=== PATIENT | female | born 1930 | race Two or more races ===

== ENCOUNTER 2017-08-12 15:22 | Observation (INO) | payer MEDICARE ==
[2017-08-12] MEDS ORDERED: SODIUM CHLORIDE 0.9% 500 ML IV ONE (15:34)
--- NOTE | 2017-08-12 15:46 | ED ---
Fall HPI - General Chief Complaint: Fall Stated Complaint: Fall Time Seen by Provider: 08/12/17 15:27 Source: patient Mode of arrival: EMS - History of Present Illness Initial Comments: Patient presents to ER by EMS after fall at nursing facility. Patient states she was walking out of the bathroom when she felt unsteady, and lowered herself to the ground. Patient is adamant that she did not fall. Patient states she sat down with her back against the closet door. Patient only complaint at this time is pain in her upper mid back that radiates to chest. Patient denies syncope. Patient denies any preceding symptoms prior to sitting down on the floor. Patient denies hip pain, low back pain, pain in any extremities. Patient denies head trauma. Patient on aspirin 81 mg daily, no other blood thinners. Patient denies confusion, numbness, weakness, speech problems, headache, shortness breath, recent illness, fevers, chills, coughing. MD Complaint: fall - Related Data Home Medications Medication Instructions Recorded Confirmed Aspirin [Adult Low Dose Aspirin EC] 81 mg PO DAILY 04/13/17 08/12/17 Calcium Carbonate [Calcium] 1,200 mg PO DAILY 04/13/17 08/12/17 Levothyroxine Sodium [Synthroid] 88 mcg PO DAILY 04/13/17 08/12/17 Multivit-Min/FA/Lycopen/Lutein 1 tab PO DAILY 04/13/17 08/12/17 [Centrum Silver Tablet] Naproxen Sodium [Aleve] 220 mg PO DAILY 04/13/17 08/12/17 [place]-3 Fatty Acids/Fish Oil [Fish 1 cap PO DAILY 04/13/17 08/12/17 Oil 1,000 mg Softgel] amLODIPine [Norvasc] 5 mg PO DAILY 08/12/17 08/12/17 Allergies Allergy/AdvReac Type Severity Reaction Status Date / Time Sulfa (Sulfonamide Allergy Unknown Verified 04/13/17 18:08 Antibiotics) Review of Systems ROS Statement: Those systems with pertinent positive or pertinent negative responses have been documented in the HPI. ROS Other: All systems not noted in ROS Statement are negative. Constitutional: Denies: fever, chills, weakness Eyes: Denies: eye pain, vision change ENT: Denies: ear pain, dental pain, congestion Respiratory: Denies: cough, dyspnea Cardiovascular: Reports: chest pain (radiates from back). Denies: palpitations , dyspnea on exertion, edema, syncope Endocrine: Denies: fatigue Gastrointestinal: Denies: abdominal pain, nausea, vomiting, diarrhea, constipation Genitourinary: Denies: urgency, dysuria, hematuria Musculoskeletal: Reports: back pain (where back hit door). Denies: joint swelling, arthralgia, myalgia Skin: Denies: rash, lesions, change in color Neurological: Denies: headache, weakness, numbness, paresthesias, confusion Past Medical History Past Medical History: Cancer History of Any Multi-Drug Resistant Organisms: None Reported Additional Past Surgical History / Comment(s): removed right eye from [place] Past Psychological History: No Psychological Hx Reported Smoking Status: Never smoker Past Alcohol Use History: None Reported Past Drug Use History: None Reported General Exam - General Exam Comments Initial Comments: Sitting up in bed smiling. Talkative. Well-appearing. Calm, pleasant. Does not appear in pain. No acute distress. Limitations: no limitations General appearance: alert, in no apparent distress Head exam: Present: atraumatic, normocephalic, normal inspection, other (No sign of head trauma) Eye exam: Present: other (Right pupil narrower than left, patient history of eye cancer with prostatic eye. Left pupil reactive, left eye movements intact.) . Absent: periorbital swelling, periorbital tenderness ENT exam: Present: normal exam, normal oropharynx Neck exam: Present: normal inspection, full ROM. Absent: tenderness Respiratory exam: Present: normal lung sounds bilaterally. Absent: respiratory distress, wheezes, rales Cardiovascular Exam: Present: regular rate, normal rhythm GI/Abdominal exam: Present: soft. Absent: distended, tenderness, guarding, rebound Extremities exam: Present: normal inspection, full ROM, normal capillary refill , other (Full Range of motion all extremities without pain.). Absent: tenderness, pedal edema, joint swelling Back exam: Present: normal inspection, tenderness (Mild tenderness thoracic spine.). Absent: paraspinal tenderness, rash noted Neurological exam: Present: alert, oriented X3 (Patient oriented to spelling of name, place, year, date of .) Psychiatric exam: Present: normal affect, normal mood Skin exam: Present: warm, dry, intact, normal color. Absent: rash, abrasion Course Vital Signs 08/12/17 08/12/17 15:28 17:33 Temperature 98.8 F Pulse Rate 91 90 Respiratory 18 18 Rate Blood Pressure 167/74 161/74 O2 Sat by Pulse 96 99 Oximetry Medical Decision Making - Medical Decision Making EKG shows sinus rhythm with PACs, heart rate 91, no ST or T-wave changes appreciated. Spoke with caregiver at [facility] patient had a fall yesterday afternoon, was found on the ground, unknown downtime. [facility] patient appeared well, however today patient seemed to be "moving more slowly" so she was sent to the ER for evaluation. Patient mentation appears well intact. No focal neuro deficits on exam. Patient denies head trauma. No sign of head trauma on exam. Do not feel head CT warranted at this time. Mild CPK elevated Trop neg BUN/Cr ratio elevated, IV fluids given. UA shows infection, Rocephin given. Will give Rx abx. 19:09 A/w xray reads. Pt ambulatory in ER without difficulty at this time. Pt updated with results thus far. No acute fracture and pelvic x-ray, new sclerosis and right pubic symphysis consistent with healing fracture, old healed left pubic fracture, no evidence of new hip fracture Thoracic x-rays show T9 compression fracture slightly worse, new fracture of T5 Chest x-ray shows new infiltrates versus atelectasis at the lung bases compared to old exam Given UTI, fall of unclear mechanism, new compression fractures, plan for observation. Patient's primary care physician Dr. Abby cisneros. 20:29 SPoke with pt's PCP Dr. Au, updated patient condition results, agrees with observation, requests consult to spine Dr. Houser Patient updated with results and plan, patient resting comfortably in bed, pain control. - Lab Data Result diagrams: 08/12/17 15:44 08/12/17 15:44 Lab Results 08/12/17 08/12/17 08/12/17 Range/Units 15:44 15:44 15:44 WBC 15.2 H (3.8-10.6) k/uL RBC 4.82 (3.80-5.40) m/uL Hgb 15.0 (11.4-16.0) gm/dL Hct 44.8 (34.0-46.0) % MCV 93.0 (80.0-100.0) fL MCH 31.1 (25.0-35.0) pg MCHC 33.5 (31.0-37.0) g/dL RDW 13.6 (11.5-15.5) % Plt Count 315 (150-450) k/uL Neutrophils % 86 % Lymphocytes % 6 % Monocytes % 6 % Eosinophils % 2 % Basophils % 0 % Neutrophils # 13.0 H (1.3-7.7) k/uL Lymphocytes # 0.9 L (1.0-4.8) k/uL Monocytes # 0.9 (0-1.0) k/uL Eosinophils # 0.2 (0-0.7) k/uL Basophils # 0.1 (0-0.2) k/uL PT (9.0-12.0) sec INR (<1.2) APTT (22.0-30.0) sec Sodium 140 (137-145) mmol/L Potassium 3.6 (3.5-5.1) mmol/L Chloride 103 (98-107) mmol/L Carbon Dioxide 24 (22-30) mmol/L Anion Gap 13 mmol/L BUN 29 H (7-17) mg/dL Creatinine 0.80 (0.52-1.04) mg/dL Est GFR (MDRD) Af Amer >60 (>60 ml/min/1.73 sqM) Est GFR (MDRD) Non-Af >60 (>60 ml/min/1.73 sqM) Glucose 95 (74-99) mg/dL Calcium 9.4 (8.4-10.2) mg/dL Creatine Kinase 225 H (30-135) U/L Troponin I 0.021 (0.000-0.034) ng/mL Urine Color Urine Appearance (Clear) Urine pH (5.0-8.0) Ur Specific [place] (1.001-1.035) Urine Protein (Negative) Urine Glucose (UA) (Negative) Urine Ketones (Negative) Urine Blood (Negative) Urine Nitrite (Negative) Urine Bilirubin (Negative) Urine Urobilinogen (<2.0) mg/dL Ur Leukocyte Esterase (Negative) Urine RBC (0-5) /hpf Urine WBC (0-5) /hpf Ur Squamous Epith Cells (0-4) /hpf Urine Bacteria (None) /hpf Hyaline Casts (0-2) /lpf Urine Mucus (None) /hpf 08/12/17 08/12/17 Range/Units 16:41 17:45 WBC (3.8-10.6) k/uL RBC (3.80-5.40) m/uL Hgb (11.4-16.0) gm/dL Hct (34.0-46.0) % MCV (80.0-100.0) fL MCH (25.0-35.0) pg MCHC (31.0-37.0) g/dL RDW (11.5-15.5) % Plt Count (150-450) k/uL Neutrophils % % Lymphocytes % % Monocytes % % Eosinophils % % Basophils % % Neutrophils # (1.3-7.7) k/uL Lymphocytes # (1.0-4.8) k/uL Monocytes # (0-1.0) k/uL Eosinophils # (0-0.7) k/uL Basophils # (0-0.2) k/uL PT 10.2 (9.0-12.0) sec INR 1.0 (<1.2) APTT 22.7 (22.0-30.0) sec Sodium (137-145) mmol/L Potassium (3.5-5.1) mmol/L Chloride (98-107) mmol/L Carbon Dioxide (22-30) mmol/L Anion Gap mmol/L BUN (7-17) mg/dL Creatinine (0.52-1.04) mg/dL Est GFR (MDRD) Af Amer (>60 ml/min/1.73 sqM) Est GFR (MDRD) Non-Af (>60 ml/min/1.73 sqM) Glucose (74-99) mg/dL Calcium (8.4-10.2) mg/dL Creatine Kinase (30-135) U/L Troponin I (0.000-0.034) ng/mL Urine Color Yellow Urine Appearance Cloudy H (Clear) Urine pH 6.0 (5.0-8.0) Ur Specific [place] 1.022 (1.001-1.035) Urine Protein 1+ H (Negative) Urine Glucose (UA) Negative (Negative) Urine Ketones 1+ H (Negative) Urine Blood Negative (Negative) Urine Nitrite Positive H (Negative) Urine Bilirubin Negative (Negative) Urine Urobilinogen 2.0 (<2.0) mg/dL Ur Leukocyte Esterase Small H (Negative) Urine RBC 3 (0-5) /hpf Urine WBC 20 H (0-5) /hpf Ur Squamous Epith Cells 3 (0-4) /hpf Urine Bacteria Many H (None) /hpf Hyaline Casts 46 H (0-2) /lpf Urine Mucus Many H (None) /hpf Disposition Clinical Impression: Thoracic compression fracture, Complicated UTI (urinary tract infection), Fall Disposition: ADMITTED IP TO THIS HOSP Condition: Good Referrals: Scottie Oneill MD [Primary Care Provider] - 1-2 days
[2017-08-12 15:58] LABS: Basophils # (A) 0.1 k/uL (0-0.2); Basophils % (A) 0 %; Eosinophils # (A) 0.2 k/uL (0-0.7); Eosinophils % (A) 2 %; HCT 44.8 % (34.0-46.0); Lymphocytes # (A) 0.9 k/uL (1.0-4.8); Lymphocytes % (A) 6 %; MCH 31.1 pg (25.0-35.0); MCHC 33.5 g/dL (31.0-37.0); Mean Platelet Volume 7.5; Monocytes # (A) 0.9 k/uL (0-1.0); Monocytes % (A) 6 %; Neutrophils % (A) 86 %; Platelet Count 315 k/uL (150-450); RBC 4.82 m/uL (3.80-5.40); RDW 13.6 % (11.5-15.5); WBC 15.2 k/uL (3.8-10.6)
[2017-08-12 16:12] LABS: Anion Gap 13 mmol/L; Blood Urea Nitrogen 29 mg/dL (7-17); Calcium 9.4 mg/dL (8.4-10.2); Carbon Dioxide 24 mmol/L (22-30); Chloride 103 mmol/L (98-107); Creatine Kinase 225 U/L (30-135); Glucose 95 mg/dL (74-99); Sodium 140 mmol/L (137-145)
[2017-08-12 16:15] LABS: Potassium 3.6 mmol/L (3.5-5.1)
[2017-08-12 16:57] LABS: Prothrombin Time 10.2 sec (9.0-12.0)
[2017-08-12 17:04] LABS: Partial Thromboplastin Time 22.7 sec (22.0-30.0)
[2017-08-12 18:09] LABS: Appearance,Urine Cloudy (Clear); Bacteria,Urine Many /hpf; Bilirubin,Urine Negative (Negative); Blood,Urine Negative (Negative); Color,Urine Yellow; Glucose,Urine (UA) Negative (Negative); Hyaline Casts,Urine 46 /lpf (0-2); Ketones,Urine 1+ (Negative); Leukocyte Esterase,Urine Small (Negative); Mucus,Urine Many /hpf; Nitrite,Urine Positive (Negative); Protein,Urine 1+ (Negative); RBC,Urine 3 /hpf (0-5); Specific Gravity,Urine 1.022 (1.001-1.035); Squamous Epithelial Cell,Urine 3 /hpf (0-4); WBC,Urine 20 /hpf (0-5)
--- NOTE | 2017-08-12 18:22 | XR ---
EXAMINATION TYPE: XR chest 2V DATE OF EXAM: 08/12/2017 COMPARISON: 04/13/2017 HISTORY: Weakness TECHNIQUE: Frontal and lateral views of the chest are obtained. FINDINGS: There is coarsening of interstitial markings. There is some linear density at the left estevan g base. Heart is enlarged. There is no gross heart failure. Thoracic aorta is atheromatous. IMPRESSION: There are new interstitial infiltrates and atelectasis at the lung bases compared to old exam. There is decreased inspiration. Cardiomegaly. No gross heart failure.
[2017-08-12] MEDS ORDERED: cefTRIAXone IN SWFI 1,000 MG/10 ML SYRINGE IVP STA (19:12)
--- NOTE | 2017-08-12 19:13 | XR ---
EXAMINATION TYPE: XR pelvis AP view DATE OF EXAM: 08/12/2017 COMPARISON: 04/13/2017 HISTORY: Back pain TECHNIQUE: Single view FINDINGS: There is some deformity and sclerosis in the pubic symphysis related to old bilateral fract ures. I see no acute fracture. The sacroiliac joints are intact. Hip joint spaces are fairly normal. There is retained fecal material in the cecum. IMPRESSION: No acute fracture seen. There is new sclerosis in the right pubic symphysis consistent wi th healing fracture. There is old healed left pubic fracture. Constipation. No evidence of hip fractu re.
--- NOTE | 2017-08-12 19:15 | XR ---
EXAMINATION TYPE: XR thoracic spine 2V DATE OF EXAM: 08/12/2017 COMPARISON: NONE HISTORY: Back pain TECHNIQUE: 3 views FINDINGS: There is osteopenia. There is compression deformity of T9 vertebra with 50% loss of height. There is also 50% wedging of T5 vertebra. There is no paraspinal mass. IMPRESSION: T9 compression fracture is slightly worse than chest x-ray of 04/13/2017. There is a new fracture of T5. Osteopenia.
[2017-08-12] MEDS ORDERED: ACETAMINOPHEN TAB 325 MG TAB PO PRN (20:31)
[2017-08-12] MEDS ORDERED: IBUPROFEN 600 MG TAB PO PRN (20:31)
[2017-08-13 07:43] VITALS: RESP 16
[2017-08-13] MEDS ORDERED: DOCUSATE 100 MG CAP PO PRN (07:55)
[2017-08-13] MEDS: SODIUM CHLORIDE 0.9% 1,000 ML IV SCH ×2 (08:39→17:58)
[2017-08-13] MEDS ORDERED: cefTRIAXone IN SWFI 1,000 MG/10 ML SYRINGE IVP SCH (09:00)
--- NOTE | 2017-08-13 09:05 | P.CNOR ---
History of Present Illness - [facility] Consult date: 08/13/17 Requesting physician: Scottie Oneill Consult reason: fracture (T5 and T9 wedging compression fracture deformities), back pain History of present illness: Patient is a very pleasant 87-year-old female who is seen and examined at the bedside for further evaluation of her thoracic spine after consultation was placed for multiple compression fracture deformities. Patient was brought to the emergency department by EMS yesterday, 08/12/2017. Patient states she was feeling unsteady and lowered herself to the floor. She denies falling. Since that time, she has had some increased mid thoracic back pain. She denies any difficulty with the bilateral lower extremities. She is able to lift and move the lower extremities throughout range of motion without difficulty. She is eating without difficulty. She has no other complaints other than her thoracic back pain. He was found to have a urinary tract infection in the emergency department and is currently receiving Rocephin IV. Past Medical History Past Medical History: Cancer History of Any Multi-Drug Resistant Organisms: None Reported Additional Past Surgical History / Comment(s): removed right eye from [place] Past Psychological History: No Psychological Hx Reported Smoking Status: Never smoker Past Alcohol Use History: None Reported Past Drug Use History: None Reported Medications and Allergies Home Medications Medication Instructions Recorded Confirmed Type Aspirin [Adult Low Dose Aspirin EC] 81 mg PO DAILY 04/13/17 08/12/17 History Calcium Carbonate [Calcium] 1,200 mg PO DAILY 04/13/17 08/12/17 History Levothyroxine Sodium [Synthroid] 88 mcg PO DAILY 04/13/17 08/12/17 History Multivit-Min/FA/Lycopen/Lutein 1 tab PO DAILY 04/13/17 08/12/17 History [Centrum Silver Tablet] Naproxen Sodium [Aleve] 220 mg PO DAILY 04/13/17 08/12/17 History [place]-3 Fatty Acids/Fish Oil [Fish 1 cap PO DAILY 04/13/17 08/12/17 History Oil 1,000 mg Softgel] amLODIPine [Norvasc] 5 mg PO DAILY 08/12/17 08/12/17 History Allergies Allergy/AdvReac Type Severity Reaction Status Date / Time Sulfa (Sulfonamide Allergy Unknown Verified 04/13/17 18:08 Antibiotics) Physical Examination Physical exam: Patient is awake, alert, and oriented 3 Vital signs stable Good chest excursion with deep inspiration and expiration Abdomen soft nontender Examination of thoracic spine reveals skin is intact with no abrasions, lacerations, or bruises; no erythema, purulence or signs of infection Significant pain with palpation of the mid thoracic spine Dorsiflexion, plantarflexion, and extensor hallucis longus positive sustained bilaterally Lower extremity strength 5/5 bilaterally No lower extremity hyperreflexia bilaterally Straight leg test negative bilateral lower extremities No signs or symptoms of DVT; no calf pain No pain with internal and external rotation of the hips bilaterally Neurovascularly intact Results Pertinent studies: X-rays of the thoracic spine: T5 and T9 wedging compression fracture deformity approximately 50% height loss; T9 fracture slightly worse as compared to previous study taken on 04/13/2017; osteopenia X-ray of the pelvis: No acute fracture evident; old healed left pubic fracture; new sclerosis in the right pubic symphysis consistent with healing fracture; no evidence of hip fracture - Labs Labs: Abnormal Lab Results - Last 24 Hours (Table) 08/12/17 08/12/17 08/12/17 Range/Units 15:44 15:44 17:45 WBC 15.2 H (3.8-10.6) k/uL Neutrophils # 13.0 H (1.3-7.7) k/uL Lymphocytes # 0.9 L (1.0-4.8) k/uL BUN 29 H (7-17) mg/dL Creatine Kinase 225 H (30-135) U/L Urine Appearance Cloudy H (Clear) Urine Protein 1+ H (Negative) Urine Ketones 1+ H (Negative) Urine Nitrite Positive H (Negative) Ur Leukocyte Esterase Small H (Negative) Urine WBC 20 H (0-5) /hpf Urine Bacteria Many H (None) /hpf Hyaline Casts 46 H (0-2) /lpf Urine Mucus Many H (None) /hpf Microbiology - Last 24 Hours (Table) 08/12/17 17:45 Urine Culture - Preliminary Urine,Voided H & H 08/12/17 Range/Units 15:44 Hgb 15.0 (11.4-16.0) gm/dL Hct 44.8 (34.0-46.0) % Coagulation 08/12/17 Range/Units 16:41 INR 1.0 (<1.2) Result Diagrams: 08/12/17 15:44 08/12/17 15:44 Assessment and Plan Assessment: Assessment: Acute T5 wedging compression fracture deformity due to osteopenia Acute worsening T9 wedging compression fracture deformity due to osteopenia Thoracic back pain Urinary tract infection (1) Wedge compression fracture of T5 vertebra Current Visit: Yes Status: Acute Code(s): S22.050A - WEDGE COMPRESSION FRACTURE OF T5-T6 VERTEBRA, INIT SNOMED Code(s): 680311042 (2) Wedge compression fracture of T9 vertebra Current Visit: Yes Status: Acute Code(s): S22.070A - WEDGE COMPRESSION FRACTURE OF T9-T10 VERTEBRA, INIT SNOMED Code(s): 760246923 (3) Thoracic back pain Current Visit: Yes Status: Acute Code(s): M54.6 - PAIN IN THORACIC SPINE SNOMED Code(s): 988891663 Plan: Plan: 1. After further evaluation of the patient, reviewing imaging, and discussion with the patient, we'll currently plan to obtain a Spinomed TLSO brace for the patient's compression fracture deformities at T5 and T9. We discussed she should wear this brace at all times while sitting upright at greater than 45, while ambulating, while working with therapy, and while doing activities. Brace is not have to be worn while lying in bed or while bathing. Patient should avoid excessive bending, twisting, lifting. No lifting greater than 10 pounds. Once this brace has been delivered and fitted properly, patient is clear for discharge from an orthopedic spine standpoint. 2. Medicine to continue following the patient closely for further treatment and evaluation including her urinary tract infection 3. Continue pain control 4. Following discharge, patient may follow-up with Michael Baker PA-C or Dr. Cezar Houser at [facility] in approximately 2-3 weeks for further evaluation 4. Patient will be discussed in detail with Dr. Cezar Houser Time with Patient: Less than 30
[2017-08-13 09:06] LABS: ALT 25 U/L (9-52); AST 25 U/L (14-36); Albumin 3.3 g/dL (3.5-5.0); Alkaline Phosphatase 106 U/L (38-126); Anion Gap 12 mmol/L; Blood Urea Nitrogen 21 mg/dL (7-17); Calcium 8.6 mg/dL (8.4-10.2); Carbon Dioxide 26 mmol/L (22-30); Chloride 104 mmol/L (98-107); Glucose 96 mg/dL (74-99); Sodium 142 mmol/L (137-145); Total Bilirubin 0.8 mg/dL (0.2-1.3); Total Protein 5.8 g/dL (6.3-8.2)
[2017-08-13 09:18] LABS: Basophils % (A) 0 %; Eosinophils % (A) 1 %; HCT 39.8 % (34.0-46.0); HGB 13.3 gm/dL (11.4-16.0); Lymphocytes # (A) 0.8 k/uL (1.0-4.8); Lymphocytes % (A) 9 %; MCH 31.2 pg (25.0-35.0); MCHC 33.5 g/dL (31.0-37.0); MCV 93.3 fL (80.0-100.0); Mean Platelet Volume 7.7; Monocytes # (A) 0.7 k/uL (0-1.0); Monocytes % (A) 8 %; Neutrophils # (A) 7.6 k/uL (1.3-7.7); Neutrophils % (A) 82 %; Platelet Count 281 k/uL (150-450); RBC 4.27 m/uL (3.80-5.40); RDW 13.5 % (11.5-15.5); WBC 9.2 k/uL (3.8-10.6)
[2017-08-13] MEDS ORDERED: Potassium Replacement Protocol 1 EACH MISC MISCELLANE PRN (09:48)
[2017-08-13] MEDS: POTASSIUM CHLORIDE ER 20 MEQ TAB.ER PO SCH ×2 (11:16→15:42)
[2017-08-13 15:30] VITALS: BP 152/80; PULSE 84; TEMP 97
--- NOTE | 2017-08-13 15:30 | HP ---
HISTORY AND PHYSICAL CHIEF COMPLAINT: 87-year-old white female with vertebral fracture acute onset due to fall and urinary tract infection, possible delirium. HISTORY OF PRESENT ILLNESS: This 87-year-old white female, past medical history of hypothyroidism and hypertension, had a fall at home. She had a vertebral fractures, admitted to the hospital for neurosurgical consultation. She was found to have urinary tract infection with some delirium. At this time she wants to go home. She does not want to stay in the hospital all at this point. White count was 15.2 on admission. Potassium 3.6 on admission. Albumin is low at 3.3. She wants to go home. Possible discharge after Neurosurgery sees her today. She is at [facility]. She does want to go to a custodial. MEDICATIONS: Home medicines: 1. Aspirin 81 mg daily. 2. Calcium 1200 mg daily. 3. Synthroid 88 mcg daily. 4. Naprosyn 500 b.i.d. 5. [place]-3 fatty acids daily. 6. Amlodipine 10.5 mg daily. REVIEW OF SYSTEM: Fourteen point review of systems negative except for mentioned in HPI. She is a thin, cachectic. Temperature 98.8, pulse 90 to 91, respiratory 18, blood pressure 160s over 70s, O2 96% on room air. Cardiovascular S1, S2. LUNGS: Clear. GI is soft, nontender. Hematologic negative Homans. Musculoskeletal: She is able to roll in bed. She is really not tender over the vertebral spine of any significant nature or with movement. Ophthalmologic pupils equal, round, reactive to light and accommodation. IV fluids have been given. Rocephin has been given. Chest x-ray shows atelectasis at the bases. Thoracic x-rays, T9 compression fracture, new fracture, T5. LABORATORY DATA: Labs reviewed. ASSESSMENT: 1. Urinary tract infection. 2. Thoracic 9 vertebral fracture. 3. Leukocytosis secondary to urinary tract infection. PLAN: Continue with current treatments including Rocephin for urinary tract infection. Vertebral brace will be needed from Orthopedic surgery. Continue with IV Rocephin. Await orthopedic consultation. MMODL / IJN: [id number] /
--- NOTE | 2017-09-15 19:28 | DS ---
DISCHARGE SUMMARY DISCHARGE MEDICATIONS: 1. Naprosyn 220 daily. 2. Synthroid 88 mcg daily. 3. [place]-3 fatty acids daily. 4. Multivitamin daily. 5. Calcium carbonate 1200 mg daily. 6. Aspirin 81 mg daily. 7. Amlodipine 5 mg daily. CONDITION: Stable. PROGNOSIS: Guarded. DISCHARGE DIAGNOSES: 1. Fracture, T5, T9 compression fractures. 2. Thoracic back pain. 3. Urinary tract infection. 4. She has dementia. 5. secondary to urinary tract infection. She was admitted for multiple compression fractures. Brace was fitted with orthopedic surgery. Treated for UTI with antibiotics. Patient was stabilized and sent home in stable condition. MMODL / IJN: [id number] /
== END 2017-08-13 18:08 | disposition home health service (06) ==
LOC: EC 15:22 → 4MS4W 20:31
PROVIDERS: ADMIT Family Medicine; ATTEND Family Medicine
DX: S22.050A Wedge compression fracture of T5-T6 vertebra, initial encounter for closed fracture (principal); S22.070A Wedge compression fracture of T9-T10 vertebra, initial encounter for closed fracture; M85.80 Other specified disorders of bone density and structure, unspecified site; N39.0 Urinary tract infection, site not specified; I10 Essential (primary) hypertension; E03.9 Hypothyroidism, unspecified; W19.XXXA Unspecified fall, initial encounter; Y92.129 Unspecified place in nursing home as the place of occurrence of the external cause; Z79.82 Long term (current) use of aspirin; Z79.899 Other long term (current) drug therapy; Z79.1 Long term (current) use of non-steroidal anti-inflammatories (NSAID); Z88.2 Allergy status to sulfonamides; Z87.81 Personal history of (healed) traumatic fracture; R64 Cachexia
CPT/HCPCS: 99285 ×2; 96374 ×2; 96376; 36415; 93005; 86900; 86901; 80053; 80048; 82550; 84484; 85025 ×2; 85610; 85730; 86850; 81001; 87086; 87077; 87186; 72070; 72170; 71046; G0378 ×2; J0696 ×2